=== PATIENT | male | born 1985 ===

== ENCOUNTER 2018-09-21 07:33 | Outpatient (CLI) | payer OTHER ==
[~2018-09-21] VITALS: Ht 177.8 cm; Wt 88.5 kg
== END 2018-09-21 07:45 | disposition home or self-care (01) ==
LOC: OFIC 805 07:33
DX: H61.23 Impacted cerumen, bilateral (principal); R49.0 Dysphonia; K20.8 Other esophagitis; H91.90 Unspecified hearing loss, unspecified ear